=== PATIENT | male | born 1960 | race African-American/Black ===

== ENCOUNTER → 2018-06-22 | Outpatient (CLI) | payer MEDICARE, MEDICAID | END | disposition home or self-care (01) | LOC: US 07:34 | DX: I65.23 Occlusion and stenosis of bilateral carotid arteries (principal); H34.232 Retinal artery branch occlusion, left eye; I10 Essential (primary) hypertension; E11.9 Type 2 diabetes mellitus without complications; E78.5 Hyperlipidemia, unspecified | CPT/HCPCS: 93880 ==

== ENCOUNTER → 2018-06-23 | Outpatient (CLI) | payer MEDICARE, MEDICAID | END | disposition home or self-care (01) | LOC: ECHO 08:39 | DX: R00.2 Palpitations (principal); I10 Essential (primary) hypertension; E11.9 Type 2 diabetes mellitus without complications; E78.5 Hyperlipidemia, unspecified | CPT/HCPCS: 93306 ==

== ENCOUNTER → 2019-01-22 | Outpatient (CLI) | payer MEDICAID, MEDICARE ==
[2015-01-02 14:24] VITALS: BP 124/62
[~2019-01-22] MED LIST: AMLO10TA8 PO; AMLO25PO MC; ASPI-482 PO; ASPI325T8 PO; CHOL400C2 PO; CLON0.2T PO; CLOP75TA PO; DEXL60CA2 PO; DIAZEPAM10 MG PO; HYDR-2145 PO; HYDR1POW19 MC; INSU100V8 SQ; LOSA100T14 PO; LOVA40TA2 PO; MESA500C PO; METF500T16 PO; METO50TA6 PO; VIT1TABL2 PO; ZOLP10TA4 PO
--- NOTE | 2019-01-22 16:36 | RAD ---
EXAM: Coleman scale and color Doppler renal artery sonogram. HISTORY: Hypertension. TECHNIQUE: Coleman scale and color Doppler sonographic images of kidneys and renal arteries with spectral analysis was performed. COMPARISON: None. FINDINGS: The right kidney measures 11.1 cm [id number]-[id number]. The left kidney measures 13.2 cm [id number]-xc-hhsn. There is no hydronephrosis. There is a 5.6 x 5.2 x 5.0 cm complex cyst within the lower pole the left kidney. This measured 4.9 x 4.7 x 4.7 cm on the study dated 12/25/2010. The proximal renal arteries are obscured. The peak systolic velocity within the visualized right renal artery is 159 cm/s. The peak systolic velocity within the visualized left renal artery is 190 cm/s. There are normal renal artery to aorta velocity ratios. There is incidental hepatic steatosis. IMPRESSION: 1. Elevated peak systolic velocity within the left renal artery, suggesting greater than 60 percent stenosis. There is no Doppler evidence of greater than 60 percent stenosis within the right renal artery. The evaluation is limited due to obscured proximal renal arteries. 2. 5.6 cm cyst with possible thin internal septation or debris within the lower pole the left kidney, slightly increased compared to a maximum measurement of 4.9 cm on the study dated 12/25/2010. The slow interval exchange underwriting consultant an 8 year period favors benignity. Electronically signed by: Janet Hsu MD (01/22/2019 4:33 PM) [id number]
== END | disposition home or self-care (01) ==
LOC: US 15:15
PROVIDERS: ATTEND Internal Medicine Cardiovascular Disease
DX: K76.0 Fatty (change of) liver, not elsewhere classified (principal); I10 Essential (primary) hypertension
CPT/HCPCS: 93975

== ENCOUNTER → 2021-08-06 | Outpatient (CLI) | payer MEDICARE ==
[2015-01-02 14:24] VITALS: BP 124/62
[~2021-08-06] MED LIST changes: +AMLO-187 PO; -AMLO10TA8 PO
[2021-08-06] MEDS: REGADENOSON 0.4 MG/5 ML DISP.SYRIN. IV ONE (09:33)
--- NOTE | 2021-08-06 16:46 | RAD ---
MR#: [id number] Date of Study: 08/06/2021 Ordering Physician: RHONDA ANDRE, Referring Physician: SIOBHAN DAS Tech: RT Ernst (R) (N) APPROVED REPORT Test Type: Pharmacological Stress Nurse/Tech: MAYRA LOMELI Test Indications: CAD Cardiac History: STENTS, HTN- SEE EMR Medications: SEE EMR Medical History: SEE EMR Resting ECG: SB Resting Heart Rate: 42 bpm Resting Blood Pressure: 144/59mmHg Pretest Chest Pain: No chest pain Nurse/Tech Notes S1,S2, LUNGS CTA, DENIED CHEST PAIN OR SOA. VSS. Consent: The procedure was explained to the patient in lay terms. Informed consent was witnessed. Cliff eout was entered into [employer] ([employer]). History and Stress Test performed by JEAN-PAUL Gracia, PRISCILLA (R) (N) Pharm. Details Pharmacologic stress testing was performed using 0.4mg per 5ml of regadenoson given intravenously ove r 7-10 seconds. POST EXERCISE Reason for Termination: Infusion complete Max HR: 78 bpm Max Blood Pressure: 172/65mmHg Blood Pressure response to exercise: Normal blood pressure response during stress. Heart Rate response to exercise: WNL Chest Pain: No. Arrhythmia: No. ST Change: Yes. INTERPRETATION Stress EKG Conclusion: Baseline EKG shows sinus rhythm. Mild ST depressions inferolateral leads at p eak stress suspicious but not diagnostic for ischemia. No arrhythmias. Imaging Protocol IMAGE PROTOCOL: Rest Tc-99m/stress Tc-99m 1 day Rest: Stress: Viability: Radiopharm.Tc99m IgtsxihpnQw26t Sestamibi Dose10.2mCi 30mCi Duration 15min. 10min. Img Date 08/06/2021 08/06/2021 Inj-Img [id number]. 90min. Rest Admin Site:IV - Right AntecubitalAdministrator:JEAN-PAUL Gracia, PRISCILLA (R)(N) Stress Admin Site: IV - Right AntecubitalAdministrator: JEAN-PAUL Gracia, PRISCILLA (R)(N) STRESS DATA End Diast. Vol.176.0mlAv. Heart Rate54.0bpm End Syst. Vol.70.0mlCO Index BSA0.0L/min Myocardial Hsgm466.0gEject. Lmpybteo42.0% Stress Rates Pk. Fill Rate2.21EDV/secLVtime Pk. Fill 291.02msec Pk. Empty Rate2.81ESV/secLVtime Pk. Rifcn632.09msec 1/3 Pk. Fill0.43EDV/sec Stress Scores Regional WT1.00Summed WT12.00 Regional WM0.00Summed WM1.00 LV Perfusion Scintigraphic images showed moderate reversible defect involving the lateral wall consistent with isc hemia. Wall Motion Normal left ventricle systolic function with ejection fraction calculated at 58%. LV Perf. Quant 17 Seg. SSS15.00 17 Seg. SRS5.00 17 Seg. SDS10.00 Stress Defect Extent (% LAD)8.10Rest Defect Extent (% LAD)0.00Rev. Defect Extent (% LAD)8.10 Stress Defect Extent (% LCX) 95.00Rest Defect Extent (% LCX)62.50Rev. Defect Extent (% LCX)95.00 Stress Defect Extent (% RCA)0.00Rest Defect Extent (% RCA)0.00Rev. Defect Extent (% RCA)0.00 Stress Defect Extent (% [place])24.60Rest Defect Extent (% [place])10.90Rev. Defect Extent (% [place])24.60 Conclusion 1. Regadenoson cardioisotope stress test showed moderate amount of lateral wall ischemia. 2. Normal left ventricular systolic function with ejection fraction calculated at 58%. 3. Intermediate risk for cardiac events. Signed by : Vishnu Conrad, Electronically Approved : 08/06/2021 16:46:09
== END ==
LOC: NM 06:53
PROVIDERS: ATTEND Internal Medicine Cardiovascular Disease
DX: I25.9 Chronic ischemic heart disease, unspecified (principal); I25.10 Atherosclerotic heart disease of native coronary artery without angina pectoris
CPT/HCPCS: 78452; 93017; A9500; J2785

== ENCOUNTER → 2022-01-20 | Outpatient (CLI) | payer MEDICARE ==
[2015-01-02 14:24] VITALS: BP 124/62
--- NOTE | 2022-01-20 17:08 | RAD ---
EXAM: RENAL ULTRASOUND CLINICAL HISTORY: Chronic kidney disease. COMPARISON: 01/22/2019 TECHNIQUE: Ultrasound examination of the bilateral kidneys and urinary bladder was performed. FINDINGS: Right kidney: 10.6 cm longitudinal. Increased cortical echogenicity. Cortical thickness is within nor mal limits. No hydronephrosis. Left kidney: Measures 13 cm longitudinal. Increased cortical echogenicity. Cortical thickness is with in normal limits. No hydronephrosis. Redemonstrated hypoechoic cyst at the inferior pole currently me asured at 5.2 x 5 x 4 cm previously measured at 5.6 x 5.2 x 5 cm. Not seen previously is a complex cy st at the interpolar region measuring approximately 1.6 x 2.4 x 1.2 cm. No localized bladder wall thickness or layering debris. IMPRESSION: 1. The kidneys are within normal limits for size but exhibit increased cortical echogenicity often se en with chronic medical renal disease. No hydronephrosis. 2. Complex renal cystic focus at the interpolar left kidney not seen previously and measured at 1.6 x 1.2 x 2.4 cm. Follow-up ultrasound is recommended in 6 months. A hypoechoic more simple appearing cy st off the inferior pole measures smaller in size from the prior at 5.2 x 5 x 4 cm compared to 5.6 x 5.2 x 5 cm. 3. Unremarkable bladder. Electronically signed by: BRANDI MCALLISTER MD (01/20/2022 5:06 PM) [id number]
== END ==
LOC: US 11:45
PROVIDERS: ATTEND Internal Medicine Nephrology
DX: N18.31 Chronic kidney disease, stage 3a (principal)
CPT/HCPCS: 76770

== ENCOUNTER → 2022-03-26 | Outpatient (CLI) | payer MEDICARE, MEDICAID ==
[2015-01-02 14:24] VITALS: BP 124/62
[~2022-03-26] MED LIST changes: +REGADENOSON 0.4 MG/5 ML DISP.SYRIN. IV ONE
--- NOTE | 2022-03-28 16:56 | RAD ---
MR#: [id number] Date of Study: 03/26/2022 Ordering Physician: RHONDA ANDRE, Referring Physician: SIOBHAN DAS Tech: RT Gabi Dukes) (N) APPROVED REPORT Test Type: Pharmacological Stress Nurse/Tech: Jackie Storey RN Test Indications: CAD Cardiac History: Hypertension, Diabetes,3 stents 2017 Medications: See Electronic Medical Record Medical History: See Electronic Medical Record Resting ECG: SB with BBB Resting Heart Rate: 43 bpm Resting Blood Pressure: 158/66mmHg Pretest Chest Pain: Atypical angina Nurse/Tech Notes S1,S2 and lungs clear to auscultation. Patient complains of mid adbominal pain/pressure before study. Consent: The procedure was explained to the patient in lay terms. Informed consent was witnessed. Cliff eout was entered into [employer]. History and Stress Test performed by RT Gabi Dukes) (N) Pharm. Details Pharmacologic stress testing was performed using 0.4mg per 5ml of regadenoson given intravenously ove r 7-10 seconds. Stress Symptoms No chest pain or symptoms. POST EXERCISE Reason for Termination: Infusion complete Target HR: No Max HR: 71 bpm 52% of Maximum Predicted HR: 135 bpm Max Blood Pressure: 152/58mmHg Blood Pressure response to exercise: Normal blood pressure response during stress. Heart Rate response to exercise: WNL Chest Pain: No. Arrhythmia: No. ST Change: No. INTERPRETATION Stress EKG Conclusion: No evidence of stress induced EKG changes. Imaging Protocol IMAGE PROTOCOL: Rest Tc-99m/stress Tc-99m 1 day Rest: Stress: Viability: Radiopharm.Tc99m PipzhvqgoWw49m Sestamibi Dose10.2mCi 32mCi Duration 13min. 13min. Img Date 03/26/2022 03/26/2022 Inj-Img [id number]. 60min. Rest Admin Site:IV - Right AntecubitalAdministrator:RT Gabi Dukes)(N) Stress Admin Site: IV - Right AntecubitalAdministrator: RT Gabi Dukes)(N) STRESS DATA End Diast. Vol.183.0mlLVEDV index BSA90.0ml End Syst. Vol.85.0mlLVESV index BSA41.0ml Myocardial Omxm408.0gEject. 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 Wall Motion Moderate global hypokinesis with moderate to severe lateral wall hypokinesis. LV Perf. Quant 17 Seg. SSS20.00 17 Seg. SRS9.00 17 Seg. SDS11.00 Stress Defect Extent (% LAD)11.30Rest Defect Extent (% LAD)0.00Rev. Defect Extent (% LAD)5.60 Stress Defect Extent (% LCX) 100.00Rest Defect Extent (% LCX)80.00Rev. Defect Extent (% LCX)63.8 0 Stress Defect Extent (% RCA)0.00Rest Defect Extent (% RCA)0.00Rev. Defect Extent (% RCA)0.00 Stress Defect Extent (% [place])31.30Rest Defect Extent (% [place])15.40Rev. Defect Extent (% [place])22.60 Other Information Quality:Fair Risk Assessment: Moderate-High Risk Conclusion 1. No evidence of stress-induced EKG changes 2. 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 Mild LV dysfunction, EF 50% 4. Degree of ischemia appears to be similar to prior study in 2020. 5. Moderate to high risk for future cardiovascular events Signed by : Zander Casey, Electronically Approved : 03/28/2022 16:56:49
== END ==
LOC: NM 07:33
PROVIDERS: ATTEND Internal Medicine Cardiovascular Disease
DX: I25.10 Atherosclerotic heart disease of native coronary artery without angina pectoris (principal)
CPT/HCPCS: 78452; 93017; A9500; J2785